=== PATIENT | male | born 1995 | race Caucasian/White ===

== ENCOUNTER 2020-03-06 06:30 | Inpatient (IN) ==
[2020-03-06 07:36] LABS: Bilirubin,Urine Negative (Negative); Blood,Urine Negative (Negative); Clarity,Urine Clear (Clear); Color,Urine Yellow (Yellow); Glucose,Urine (UA) Normal (Normal); Ketones,Urine Trace mg/dL (Negative); Leukocyte Esterase,Urine Negative (Negative); Mucus,Urine Few per lpf (None-Few); Nitrite,Urine Negative (Negative); Protein,Urine 30 mg/dL (Neg-Trace); RBC,Urine 0-3 per hpf (0-3); Specific Gravity,Urine > 1.030 (1.010-1.025); Squamous Epithelial Cell,Urine Few per hpf (None-Few); Urobilinogen,Urine Normal (Normal); WBC,Urine 0-3 per hpf (0-3)
[2020-03-06 07:46] LABS: Amphetamine Screen,Urine Negative ng/mL (Cutoff=1000); Barbiturate Screen,Urine Negative ng/mL (Cutoff=200)
[2020-03-06 07:48] LABS: Benzodiazepines Screen,Urine Negative ng/mL (Cutoff=300); Cannabinoid Screen,Urine Negative ng/mL (Cutoff = 50)
[2020-03-06 07:49] LABS: Cocaine Screen,Urine Negative ng/mL (Cutoff= 300); Opiate Screen,Urine Negative ng/mL (Cutoff=300); Phencyclidine Screen,Urine Negative ng/mL (Cutoff=25)
[2020-03-06 07:51] LABS: Basophils % 0.3 %; Eosinophils % 0.2 %; Hematocrit 47.4 % (37.5-50.1); Immature Granulocytes % 0.3 % (0-4); Lymphocytes % 23.3 %; Mean Corpuscular HGB Conc 33.8 g/dL (31.6-35.5); Mean Corpuscular Hemoglobin 30.2 pg (28.0-33.3); Mean Corpuscular Volume 89.4 fL (83.0-100.0); Mean Platelet Volume 9.1 fL (9.4-12.4); Monocytes # 1.1 K/mcL (0.0-1.3); Monocytes % 8.2 %; Neutrophils # 8.7 K/mcL (1.6-8.9); Platelet Count 317 K/mcL (140-400); Red Cell Distribution Width 12.9 % (11.5-14.5); Segmented Neutrophils % 67.7 %; White Blood Count 12.9 K/mcL (4.3-11.1)
[2020-03-06 08:26] LABS: Estimated Average Glucose 123 mg/dl; Hemoglobin A1C 5.9 %
[2020-03-06 08:40] LABS: Acetaminophen < 10 mcg/mL (10-20); BUN/Creatinine Ratio 24 (6-26); Blood Urea Nitrogen 20 mg/dL (6-20); Calcium 10.2 mg/dL (8.6-10.3); Carbon Dioxide 23 mEq/L (23-29); Chloride 106 mEq/L (98-107); Chol/HDL Ratio 5.2 (0-4.9); Cholesterol 227 mg/dL (< 200); Ethanol < 10 mg/dL (Less than 10); Glucose 110 mg/dL (70-105); HDL Cholesterol 44 mg/dL (40-59); LDL Cholesterol,Calculated 166 mg/dL (< 100); Osmolality,Calculated 293 (280-300); Potassium 3.2 mEq/L (3.5-5.1); Salicylate < 2.5 mg/dL (15.0-30.0); Sodium 140 mEq/L (136-145); Triglycerides 87 mg/dL (< 150); Valproate < 4 mcg/mL (50-100); eGFR For African Americans > 60 (> 60); eGFR For Non-African Americans > 60 (> 60)
[2020-03-06] MEDS ORDERED: *HR* LORazepam 1 MG TABLET PO ONE (10:11)
[2020-03-06] MEDS ORDERED: Mag Hydrox/Al Hydrox/Simeth 30 ML UDC PO PRN (12:03)
[2020-03-06] MEDS ORDERED: Acetaminophen 325 MG TABLET PO PRN (12:03)
[2020-03-06] MEDS ORDERED: MOM Conc 10 ML UD.LIQ PO PRN (12:03)
[2020-03-06] MEDS ORDERED: *HR* LORazepam 1 MG TABLET PO PRN (12:03)
[2020-03-06] MEDS ORDERED: haloperidoL 5 MG TABLET PO PRN (12:03)
[2020-03-06] MEDS ORDERED: *HR* LORazepam 2 MG/ML VIAL IM PRN (12:03)
[2020-03-06] MEDS ORDERED: Haloperidol Lactate 5 MG/ML VIAL IM PRN (12:03)
[2020-03-06] MEDS: traZODone 50 MG TABLET PO PRN (20:08)
[2020-03-06] MEDS: hydrOXYzine pamoate 25 MG CAPSULE PO PRN (20:08)
[2020-03-07] MEDS: traZODone 50 MG TABLET PO PRN (20:03)
[2020-03-07] MEDS: hydrOXYzine pamoate 25 MG CAPSULE PO PRN (20:03)
[2020-03-08] MEDS: hydrOXYzine pamoate 25 MG CAPSULE PO PRN ×2 (03:22→20:36)
[2020-03-08] MEDS: traZODone 50 MG TABLET PO SCH (20:36)
[2020-03-09] MEDS: hydrOXYzine pamoate 25 MG CAPSULE PO PRN ×2 (01:10→20:49)
[2020-03-09] MEDS: traZODone 50 MG TABLET PO PRN (01:10)
[2020-03-09] MEDS ORDERED: PALIPERIDONE PALMITATE 234 MG/1.5 ML SYRINGE IM ONE (15:00)
[2020-03-09] MEDS: traZODone 50 MG TABLET PO SCH (20:49)
[2020-03-10 07:27] LABS: Chol/HDL Ratio 4.8 (0-4.9)
[2020-03-10] MEDS: Lithium Carbonate 300 MG CAPSULE PO SCH ×2 (12:19→20:22)
[2020-03-10] MEDS: traZODone 50 MG TABLET PO SCH (20:22)
[2020-03-11] MEDS: traZODone 50 MG TABLET PO PRN (00:04)
[2020-03-11] MEDS: hydrOXYzine pamoate 25 MG CAPSULE PO PRN ×2 (00:04→20:13)
[2020-03-11] MEDS: Lithium Carbonate 300 MG CAPSULE PO SCH ×2 (08:44→20:13)
[2020-03-11] MEDS: traZODone 50 MG TABLET PO SCH (20:13)
[2020-03-12] MEDS: Lithium Carbonate 300 MG CAPSULE PO SCH ×2 (08:32→20:37)
[2020-03-12] MEDS: hydrOXYzine pamoate 25 MG CAPSULE PO PRN ×2 (15:25→20:37)
[2020-03-12 19:53] VITALS: BP 127/84
[2020-03-12] MEDS: traZODone 50 MG TABLET PO SCH (20:37)
== END 2020-03-13 08:40 | disposition home or self-care (01) | DRG 885 ==
LOC: EMEROOARM 06:30 → 1ANU 11:59
PROVIDERS: ADMIT Psychiatry & Neurology Forensic Psychiatry; ATTEND Psychiatry & Neurology Forensic Psychiatry

== ENCOUNTER 2021-02-08 21:22 | Observation (INO) ==
[2021-02-09] MEDS ORDERED: Naloxone 0.4 MG/ML INJ IVP PRN (01:33)
[2021-02-09] MEDS ORDERED: Melatonin 3 MG TABLET PO PRN (01:33)
[2021-02-09 14:43] LABS: Amphetamine Screen,Urine Negative ng/mL (Cutoff=1000); Barbiturate Screen,Urine Negative ng/mL (Cutoff=200); Benzodiazepines Screen,Urine Negative ng/mL (Cutoff=200); Cannabinoid Screen,Urine Negative ng/mL (Cutoff = 50); Cocaine Screen,Urine Negative ng/mL (Cutoff= 300); Opiate Screen,Urine Negative ng/mL (Cutoff=300); Phencyclidine Screen,Urine Negative ng/mL (Cutoff=25)
[2021-02-09 18:28] LABS: BUN/Creatinine Ratio 9 (6-26); Blood Urea Nitrogen 9 mg/dL (6-20); Calcium 8.7 mg/dL (8.6-10.3); Carbon Dioxide 23 mEq/L (23-29); Chloride 102 mEq/L (98-107); Glucose 104 mg/dL (70-105); Magnesium 2.2 mg/dL (1.6-2.6); Osmolality,Calculated 277 (280-300); Potassium 3.8 mEq/L (3.5-5.1); Sodium 134 mEq/L (136-145); eGFR For African Americans > 60 (> 60); eGFR For Non-African Americans > 60 (> 60)
[2021-02-11 01:24] LABS: Basophils % 0.3 %; Eosinophils # 0.1 K/mcL (0.0-0.6); Hematocrit 42.6 % (37.5-50.1); Hemoglobin 14.4 g/dL (12.9-16.9); Immature Granulocytes % 0.7 % (0-4); Lymphocytes # 2.3 K/mcL (0.6-4.6); Mean Corpuscular HGB Conc 33.8 g/dL (31.6-35.5); Mean Corpuscular Hemoglobin 29.1 pg (28.0-33.3); Mean Corpuscular Volume 86.2 fL (83.0-100.0); Mean Platelet Volume 9.1 fL (9.4-12.4); Monocytes # 0.6 K/mcL (0.0-1.3); Neutrophils # 3.7 K/mcL (1.6-8.9); Platelet Count 251 K/mcL (140-400); Red Blood Count 4.94 M/mcL (4.19-5.50); Red Cell Distribution Width 12.4 % (11.5-14.5); White Blood Count 6.8 K/mcL (4.3-11.1)
[2021-02-11 01:37] LABS: Alanine Aminotransferase 17 Units/L (7-52); Albumin 3.8 g/dL (3.5-5.7); Albumin/Globulin Ratio 1.4 (1.1-2.2); Alkaline Phosphatase 67 Units/L (34-104); Aspartate Amino Transferase 16 Units/L (13-39); BUN/Creatinine Ratio 14 (6-26); Bilirubin,Total 0.6 mg/dL (0.3-1.0); Blood Urea Nitrogen 12 mg/dL (6-20); Calcium 8.3 mg/dL (8.6-10.3); Carbon Dioxide 24 mEq/L (23-29); Chloride 101 mEq/L (98-107); Globulin 2.7 g/dL (2.4-3.5); Glucose 107 mg/dL (70-105); Osmolality,Calculated 280 (280-300); Potassium 3.2 mEq/L (3.5-5.1); Sodium 135 mEq/L (136-145); Total Protein 6.5 g/dL (6.4-8.9); eGFR For African Americans > 60 (> 60); eGFR For Non-African Americans > 60 (> 60)
[2021-02-11 04:02] VITALS: PULSE 71; O2SAT 94
[2021-02-11 07:45] VITALS: BP 151/81; TEMP 97.8
== END 2021-02-11 12:14 | disposition home or self-care (01) ==
LOC: EMEROOARM 21:22 → INTOOBSV 02-09 01:20 → 3BNU 02-09 01:20
PROVIDERS: ADMIT Internal Medicine; ATTEND Internal Medicine